=== PATIENT | female | born 1950 | race Caucasian/White ===

== ENCOUNTER 2017-05-02 09:48 | Emergency (ER) | payer OTHER, MEDICAID ==
--- NOTE | 2017-05-02 10:43 | EDPHY ---
HPI/HX/ROS/PE/MDM Narrative: CHIEF COMPLAINT: Burning sensation on left side of head HPI: This patient is a 66 year old female with history of bipolar disorder presenting with a burning sensation and tenderness in the left side of her scalp. One month ago, she was diagnosed with temporal arteritis by her primary care provider, Dr. Monaco, based on an elevated ESR. She has not had further testing. She has had pain and sensitivity with an associated sensation of heat in her right or left temporal region intermittently for several months. She was prescribed prednisone, but did not take this due to fear of exacerbation of her bipolar disorder symptoms. She has tried to treat with turmeric for antiinflammatory properties. Last night, the left side of her head became very hot and tender. She endorses anxiety, photophobia and sound sensitivity. She denies vision changes. No fever, chest pain, shortness of breath, vomiting, urinary complaints, or other associated symptoms. REVIEW OF SYSTEMS: Aside from elements discussed in the HPI, a comprehensive 10-point review of systems was reviewed and is negative. PMH: Bipolar disorder. Hypertension. SOCIAL HISTORY: Single, lives in [place]. PHYSICAL EXAM: General:Patient is alert, appears anxious. ENT:Eyes are normal to inspection. ENT inspection normal. Neck: Normal inspection. Full range of motion. Respiratory:No respiratory distress. Breath sounds normal bilaterally. Cardiovascular: Regular rate and rhythm. Strong peripheral pulses. Normal cap refill. Abdomen:The abdomen is nontender to palpation. There are no peritoneal signs. There are normal bowel sounds. Back: Normal to inspection. No tenderness to palpation. Skin: Normal color. No rash. Warm and dry. Extremities: Normal appearance. Full range of motion. Neuro: Oriented x3. Normal motor function. Normal sensory function. ED Course: 66 y/o female with history of bipolar disorder presents with left-sided temporal pain and burning sensation onset last night. She is neurologically intact. I offered a CT of the head to rule out acute processes; risks and benefits discussed. Discussed processes for confirmation of diagnosis of temporal arteritis including repeat ESR, outpatient followup for biopsy. The patient would like to proceed with CT head, laboratory studies. Plan for labs including CBC, chemistries, ESR. ESR negative. Laboratory studies otherwise unremarkable. 11:[address] Tejada, radiologist. CT negative for acute processes. 12:[address] Martinez, general surgeon. She suggests consult with her or with Dr. Fox straightener and aligner, for further evaluation. 12:15 Reassessed patient. Plan to discharge home in good condition. She has decided to try Prednisone for symptom relief. Follow up and return precautions discussed. The patient is comfortable with this plan. MDM: This patient presents with history of right temporal pain for months with an elevated ESR from one month ago. I certainly agree this is concerning for temporal arteritis, but the patient has been hesitant to treat with prednisone and has opted for non-traditional therapy with herbs etc. over the last month. Her pain today has now migrated to the contralateral side, and ESR is now normal. Given this, it is unclear if this truly represents temporal arteritis, and I am hesitant to treat the patient with high-dose steroids given uncertainty of diagnosis and potential for harm given mental health disease. We agreed to write her a prescription for prednisone which she will consider taking and I have referred her to rhematology and surgery to help facilitate definitive diagnosis. - Data Points Imaging Results: Imaging Impressions Head CT 05/02/17 10:52 Impression: 1. No significant intracranial abnormality seen. If symptoms worsen, additional imaging may be necessary. Findings discussed with James Saini MD at 11:27 hour, 05/02/2017. Imaging: Discussed imaging studies w/ call box wirer Radiologist Laboratory Results: Laboratory Results 05/02/17 11:00 05/02/17 11:00 05/02/17 05/02/17 11:00 11:00 WBC 7.71 10^3/uL 10^3/uL (3.80-9.50) RBC 4.70 10^6/uL 10^6/uL (4.18-5.33) Hgb 14.8 g/dL g/dL (12.6-16.3) Hct 40.0 % % (38.0-47.0) MCV 85.1 fL fL (81.5-99.8) MCH 31.5 pg pg (27.9-34.1) MCHC 37.0 g/dL H g/dL (32.4-36.7) RDW 12.6 % % (11.5-15.2) Plt Count 221 10^3/uL 10^3/uL (150-400) MPV 9.8 fL fL (8.7-11.7) Neut % (Auto) 80.6 % H % (39.3-74.2) Lymph % (Auto) 11.3 % L % (15.0-45.0) [place] % (Auto) 7.1 % % (4.5-13.0) Eos % (Auto) 0.4 % L % (0.6-7.6) Baso % (Auto) 0.3 % % (0.3-1.7) Nucleat RBC Rel Count 0.0 % % (0.0-0.2) Absolute Neuts (auto) 6.22 10^3/uL 10^3/uL (1.70-6.50) Absolute Lymphs (auto) 0.87 10^3/uL L 10^3/uL (1.00-3.00) Absolute Monos (auto) 0.55 10^3/uL 10^3/uL (0.30-0.80) Absolute Eos (auto) 0.03 10^3/uL 10^3/uL (0.03-0.40) Absolute Basos (auto) 0.02 10^3/uL 10^3/uL (0.02-0.10) Absolute Nucleated RBC 0.00 10^3/uL 10^3/uL (0-0.01) Immature Gran % 0.3 % % (0.0-1.1) Immature Gran # 0.02 10^3/uL 10^3/uL (0.00-0.10) ESR 10 MM/HR MM/HR (0-30) Sodium 142 mEq/L mEq/L (134-144) Potassium 3.3 mEq/L L mEq/L (3.5-5.2) Chloride 103 mEq/L mEq/L (97-110) Carbon Dioxide 23 mEq/l mEq/l (22-31) Anion Gap 16 mEq/L mEq/L (8-16) BUN 17 mg/dL mg/dL (7-23) Creatinine 0.8 mg/dL mg/dL (0.6-1.0) Estimated GFR > 60 Glucose 112 mg/dL H mg/dL (70-100) Calcium 10.8 mg/dL H mg/dL (8.5-10.4) Phosphorus 2.1 mg/dL L mg/dL (2.5-4.5) General Time Seen by Provider: 05/02/17 10:25 Initial Vital Signs: Initial Vital Signs Temperature (C) 36.8 C 05/02/17 09:54 Heart Rate 134 H 05/02/17 09:54 Respiratory Rate 18 05/02/17 09:54 Blood Pressure 149/98 H 05/02/17 09:54 O2 Sat (%) 93 05/02/17 09:54 O2 Delivery Mode Room Air Allergies/Adverse Reactions: lisinopril Allergy (Verified 05/02/17 09:52) Home Medications: Medication Instructions Recorded LAMICTAL ODT 01/15/10 Seraquel 01/15/10 Amlodipine Besylate 05/02/17 HCTZ (*) 05/02/17 LORAZEPAM 05/02/17 Potassium Chloride 05/02/17 predniSONE 40 mg PO DAILY 5 Days tab 05/02/17 Departure - Departure Disposition: Home, Routine, Self-Care Clinical Impression: Headache Condition: Good Instructions: Acute Headache (ED) Additional Instructions: 1. Follow up with Dr. Martinez, general surgeon, or Dr. Fox, straightener and aligner, in the next five days for further evaluation and possible biopsy. 2. Return to the emergency department for worsening pain, visual changes, neck pain, fever, chest pain, shortness of breath, or other worsening of condition. 3. Take Prednisone as prescribed. Referrals: Erika Burger MD [Primary Care Provider] - As per Instructions Cinda Martinez MD [Medical Doctor] - As per Instructions Elliot Fox MD [Medical Doctor] - As per Instructions Prescriptions: predniSONE 40 mg PO DAILY 5 Days tab Report Scribed for: James Saini Report Scribed by: Sara Chacon Date of Report: 05/02/17 Time of Report: 10:38 Physician Review and Approval Statement: Portions of this note were transcribed by an ED scribe. I personally performed the history, physical exam, and medical decision making; and confirm the accuracy of the information in the transcribed note.
[2017-05-02 11:07] LABS: % IMMATURE GRANULYOCYTES 0.3 % (0.0-1.1); ABSOLUTE IMMATURE GRANULOCYTES 0.02 10^3/uL (0.00-0.10); ADD DIFF? NO; ADD MORPH? NO; ADD SCAN? NO; ATYPICAL LYMPHOCYTE FLAG 10 (0-99); FRAGMENT RBC FLAG 0 (0-99); HEMOGLOBIN 14.8 g/dL (12.6-16.3); LEFT SHIFT FLG 0 (0-99); LIPEMIA HEMOLYSIS FLAG 90 (0-99); MEAN CELL HEMOGLOBIN 31.5 pg (27.9-34.1); MEAN CELL VOLUME 85.1 fL (81.5-99.8); MEAN PLATELET VOLUME 9.8 fL (8.7-11.7); PLATELET CLUMPS FLAG 0 (0-99); PLATELET COUNT 221 10^3/uL (150-400); RED CELL DISTRIBUTION WIDTH 12.6 % (11.5-15.2)
[2017-05-02 11:17] LABS: SEDIMENTATION RATE 10 MM/HR (0-30)
[2017-05-02 11:31] LABS: ANION GAP 16 mEq/L (8-16); CALCIUM 10.8 mg/dL (8.5-10.4); CARBON DIOXIDE 23 mEq/l (22-31); CHLORIDE 103 mEq/L (97-110); CREATININE 0.8 mg/dL (0.6-1.0); GLOMERULAR FILTRATION RATE > 60; GLUCOSE 112 mg/dL (70-100); POTASSIUM 3.3 mEq/L (3.5-5.2); SODIUM 142 mEq/L (134-144)
[2017-05-02 12:52] VITALS: BP 122/77; PULSE 89; RESP 16; TEMP 98.4; O2SAT 98
== END 2017-05-02 12:52 | disposition home or self-care (01) ==
DX: R51 Headache (principal); I10 Essential (primary) hypertension

== ENCOUNTER 2017-05-17 17:57 | Emergency (ER) | payer OTHER, MEDICAID ==
--- NOTE | 2017-05-17 18:03 | EDPHY ---
HPI/HX/ROS/PE/MDM Narrative: CHIEF COMPLAINT: Possible poly-pharm overdose. HPI: This patient is a 66 year old female with history of bipolar disorder arriving via EMS for evaluation of a possible pharmaceutical overdose. EMS was called by the patient's daughter, who noted the patient had slurred speech and altered mental status. Per EMS report, the daughter reported that the patient described having trouble keeping track of her medications. These include Ativan, Amlodipine, HCTZ, potassium, and most recently Prednisone to treat possible temporal arteritis. On arrival, EMS noted about 30 Ativan pills scattered on the floor. They did not note much medication missing from the other bottles. EMS crews report the patient's vitals were stable and within normal limits during transport, but she remained slow to respond. Her blood glucose level was 212. Further HPI unobtainable due to patient's altered mental status. REVIEW OF SYSTEMS: Comprehensive 10-point review of systems unable to be performed due to patient' s alrered mental status. PMH: Bipolar disorder. Hypertension. SOCIAL HISTORY: Single, lives in [place]. Daughter at bedside. PHYSICAL EXAM: General:Patient is alert, in no acute distress. ENT: Pupils 3mm bilaterally. ENT inspection normal. Neck: Normal inspection. Full range of motion. Respiratory:No respiratory distress. Breath sounds normal bilaterally. Cardiovascular: Regular rate and rhythm. Strong peripheral pulses. Normal cap refill. Abdomen:The abdomen is nontender to palpation. There are no peritoneal signs. There are normal bowel sounds. Back: Normal to inspection. No tenderness to palpation. Skin: Normal color. No rash. Warm and dry. Extremities: Erythema to bilateral elbows and right shoulder. Normal appearance. Full range of motion. Neuro: Oriented x0. Slurred speech. No focal deficits. REVIEW OF SYSTEMS: Aside from elements discussed in the HPI, a comprehensive 10-point review of systems was reviewed and is negative. (James Saini) ED Course: 17:58 Met EMS at bedside. 66 y/o female with history of bipolar disorder presents following a possible benzodiazepine or poly-pharmaceutical overdose. She is oriented x0 with slurred speech on exam. No focal neurologic deficits. Plan for CT head. IV established. Plan for labs including CBC, BMP, troponin, tox screen, liver function, substance levels including EtOH, salicylate, acetaminophen. Per EMS report, patient's daughter will arrive shortly. EKG was ordered and interpreted by myself. Please see Action system for official reading. Sinus tachycardia, borderline right axis deviation, borderline prolonged QT. 19:[address] Case, radiologist. CT head negative for acute processes. 19:33 Spoke with patient's daughter. She states that patient has not relayed any specific suicidal ideation to her. She normally talks to her mom each day and got worried when she did not hear from her. She believes that the patient' s dosage of Seroquel is too high, but cannot rule out Ativan overuse. Patient denies any suicidal thoughts or attempt. She states she never took any of the prednisone prescribed by me several weeks ago. 20:[address] Logna at shift change, see plan following in MDM. (James Saini) 2300 care assumed by me from Dr. Logan pending mental health evaluation. [address] Figueroa pending mental health evaluation. No issues during my care patient overnight. (Adan Lund) MDM: Patient signed out to Dr. Logan with plan for workup as follows: 1. Obs for 6 hours (till midnight) to ensure no hemodynamic instability given possibility of calcium-channel luis f ingestion. 2. If mental status clear at this point, will need mental health evaluation as bipolar disorder appears to be poorly controlled and patient having difficulty with ADLs. She may need adjustment of her meds vs. possible admission if found to be gravely disabled. I currently do not have concern for suicidal ideation, so patient not currently a candidate for M1 hold. (James Saini) Care the patient is assumed at 8:[address] Saini. Plan as above, observation with serial vital signs. 12-lead EKG interpreted by me; official reading is in trace master. My interpretation is sinus tachycardia with borderline right axis, rate 105, QTC 368. Signed out to Kevon at 2330 with plan as above. (Shawn Logan) I assumed care of this patient from Dr. Lund at 7:00 a.m.. She is awaiting mental health evaluation. Mental health evaluation was completed and she is felt to be safe for discharge. She is not actively suicidal or homicidal. She does not meet criteria for 72 hr hold. She has outpatient follow-up and social support. ( Elly Figueroa) - Data Points Laboratory Results: Laboratory Results 05/17/17 18:00 05/17/17 18:00 Medications Given: Discontinued Medications Sodium Chloride (Ns) 1,000 mls @ 0 mls/hr IV EDNOW ONE; Wide Open PRN Reason: Protocol Stop: 05/17/17 18:06 Last Admin: 05/17/17 18:14 Dose: 1,000 mls General Initial Vital Signs: Initial Vital Signs Temperature (C) 36.7 C 05/17/17 18:10 Heart Rate 102 H 05/17/17 18:10 Respiratory Rate 14 05/17/17 18:10 Blood Pressure 126/90 H 05/17/17 18:10 O2 Sat (%) 98 05/17/17 18:10 O2 Delivery Mode Room Air Allergies/Adverse Reactions: lisinopril Allergy (Intermediate, Verified 05/18/17 09:14) Other-Enter Comments Home Medications: Medication Instructions Recorded Hydrochlorothiazide [HCTZ (*)] 25 mg PO DAILY 05/02/17 LORazepam [Lorazepam] 1 mg PO BID 05/02/17 Potassium Cl [Klor-Con 20 meq (*)] 20 meq PO DAILY 05/02/17 amLODIPine BESYLATE [Amlodipine 10 mg PO DAILY 05/02/17 Besylate] Clobetasol 0.05% [Temovate Cream] 1 nerissa TP BID PRN 05/18/17 Herbals/Supplements -Info Only 1 ea PO DAILY 05/18/17 Multivitamins [Multivitamin (*)] 1 each PO DAILY 05/18/17 QUEtiapine FUMARATE [Seroquel 200 200 mg PO HS 05/18/17 mg (*)] lamoTRIgine [Lamotrigine] 200 mg PO HS 05/18/17 Departure - Departure Disposition: Home, Routine, Self-Care Clinical Impression: Bipolar 1 disorder Condition: Good Instructions: Bipolar Disorder (ED), Benzodiazepine Overdose (ED) Additional Instructions: Please be careful taking your medications and take them only as prescribed. Referrals: Lillian George [Unknown] - As per Instructions Report Scribed for: James Saini Report Scribed by: Sara Chacon Date of Report: 05/17/17 Time of Report: 18:04 Physician Review and Approval Statement: Portions of this note were transcribed by an ED scribe. I personally performed the history, physical exam, and medical decision making; and confirm the accuracy of the information in the transcribed note.
[2017-05-17] MEDS ORDERED: NS 1,000 ML IV ONE (18:05)
--- NOTE | 2017-05-17 18:10 | CPEKG ---
Heart Rate: 105 RR Interval: 571 P-R Interval: 156 QRSD Interval: 100 QT Interval: 368 QTC Interval: 487 P [place]: 75 QRS [place]: 84 T Wave [place]: 260 EKG Severity - BORDERLINE ECG - EKG Impression: SINUS TACHYCARDIA EKG Impression: BORDERLINE RIGHT AXIS DEVIATION EKG Impression: BORDERLINE PROLONGED QT INTERVAL Electronically Signed By: James Saini 17-May-2017 21:22:09
[2017-05-17 18:11] LABS: PLATELET COUNT 239 10^3/uL (150-400)
[2017-05-18 08:22] VITALS: RESP 16; TEMP 97.7
[2017-05-18 11:09] VITALS: BP 108/89; PULSE 102; O2SAT 92
== END 2017-05-18 11:08 | disposition home or self-care (01) ==
LOC: EDUNIT#
DX: F31.9 Bipolar disorder, unspecified (principal); E86.9 Volume depletion, unspecified; I10 Essential (primary) hypertension
CPT/HCPCS: 80305; 82947-QW; G0480